=== PATIENT | male | born 1990 | race Caucasian/White ===

== ENCOUNTER 2016-10-27 17:29 | Emergency (ER) | payer SELFPAY ==
[~2016-10-27] VITALS: Ht 167.6 cm; Wt 83.5 kg
--- NOTE | 2016-10-27 17:34 | NUR ---
bibra from home due to chest palpitation x 1 day sp smoking pot. Patient received aao3. Appears in no acute distress.Respiration even and unlabored. Skin is warm to touch and non diaphoretic. Afebrile. Connected pt to tele monitor. vss.
[2016-10-27] MEDS ORDERED: LORAZEPAM 1 MG TABLET ONE (17:35)
--- NOTE | 2016-10-27 17:36 | NUR ---
MD Melgar at bedside for evaluation
[2016-10-27] MEDS: LORAZEPAM 1 MG TABLET PO ONE (17:41)
--- NOTE | 2016-10-27 17:41 | NUR ---
medicated patient as ordered
--- NOTE | 2016-10-27 18:35 | NUR ---
Patient discharged to home in stable condition. Written and verbal after care instructions given. Patient verbalizes understanding of instruction.
[2016-10-27 18:37] VITALS: BP 130/82
== END 2016-10-27 18:38 | disposition home or self-care (01) ==
LOC: ER 17:31
DX: F41.9 Anxiety disorder, unspecified (principal)
CPT/HCPCS: 99284; A4606; Z7610